=== PATIENT | female | born 1975 ===

== ENCOUNTER 2021-12-07 16:44 | Outpatient (CLI) | payer OTHER | END 2021-12-07 16:50 | disposition home or self-care (01) | LOC: RAD 16:44 | PROVIDERS: ATTEND Orthopaedic Surgery | DX: M25.511 Pain in right shoulder (principal) ==

== ENCOUNTER 2024-08-06 11:00 | Inpatient (IN) | payer OTHER ==
[2024-08-10] MEDS ORDERED: PERCOCET 5-3251 EACH PO (16:13)
[2024-08-10] MEDS ORDERED: AMOX-CLAV 875-1 EACH PO (16:13)
[2024-08-10] MEDS ORDERED: MEDROLPACK PO (16:13)
[2024-08-10] MEDS ORDERED: GABAPENTIN100 M2 PO (16:14)
[2024-08-10] MEDS ORDERED: COLACE100 MG PO (16:14)
[2024-08-10] MEDS ORDERED: NEURONTIN800 MG PO (16:15)
[2024-08-10] MEDS ORDERED: 0.9 % SODIUM CHLORIDE 1,000 ML IV SCH (16:15)
[2024-08-10] MEDS ORDERED: ENALAPRILAT DIHYDRATE 1.25 MG/ML VIAL IV PRN (16:15)
[2024-08-10] MEDS ORDERED: MORPHINE SULFATE 4 MG/ML CARTRIDGE IV PRN (16:15)
[2024-08-10] MEDS ORDERED: PROMETHAZINE HCL 50 MG/ML AMPUL IM PRN (16:15)
[2024-08-10] MEDS ORDERED: IOVERSOL 320 MG/ML - 50 ML VIAL IV SCH (17:00)
[2024-08-10] MEDS ORDERED: DOCUSATE SODIUM 100MG CAP PO SCH (17:00)
[2024-08-10] MEDS ORDERED: FAMOtidine 20 MG TABLET PO SCH (17:00)
[2024-08-10] MEDS ORDERED: CEFAZOLIN SODIUM 1,000 MG in 0.9 % SODIUM CHLORIDE 50 ML IV SCH (17:00)
[2024-08-10] MEDS ORDERED: VANCOMYCIN HCL 1,000 MG VIAL IR ONE (17:00)
[2024-08-10] MEDS ORDERED: CEFAZOLIN SODIUM 1,000 MG VIAL IV ONE (17:00)
[2024-08-10] MEDS ORDERED: VANCOMYCIN HCL 1,000 MG VIAL IV ONE (17:00)
[2024-08-10] MEDS ORDERED: HEMOSTATIC MATRIX WITH THROMBIN KIT TOP ONE (17:00)
[2024-08-10] MEDS ORDERED: METHYLPREDNISOLONE SOD SUCC 125 MG VIAL IV ONE ×2 (17:00)
[2024-08-10] MEDS ORDERED: METHYLPREDNISOLONE SOD SUCC 125 MG VIAL IV SCH (17:00)
[2024-08-10] MEDS ORDERED: METHYLPREDNISOLONE ACETATE 80 MG/ML VIAL IU ONE ×2 (17:00)
[2024-08-10] MEDS ORDERED: ACETAMINOPHEN 500 MG GEL..CAP PO SCH (20:00)
[2024-08-10] MEDS ORDERED: GABAPENTIN 800 MG TABLET PO SCH (21:00)
[2024-08-10] MEDS ORDERED: ZOLPIDEM TARTRATE 10 MG TABLET PO SCH (21:00)
[2024-08-10] MEDS ORDERED: MORPHINE SULFATE 4 MG/ML VIAL IV ONE ×2 (21:00→21:30)
[2024-08-10 22:35] VITALS: BP 135/60; O2SAT 98
[2024-08-10 23:58] VITALS: BP 122/66; O2SAT 97
[2024-08-11] VITALS (9 sets, daily range): BP systolic 101; BP diastolic 62–70; O2SAT 95–100
[2024-08-11] MEDS ORDERED: SODIUM CHLORIDE 0.45 % 1,000 ML IV SCH
[2024-08-11] MEDS ORDERED: OxyCODONE HCL 5 MG TABLET (ROXICODONE) PO PRN (06:01)
[2024-08-11 06:56] LABS: HEMOGLOBIN 9.3 g/dL (12.0-15.00); MEAN CELL VOLUME 84.2 fL (80.00-100.00); MEAN CORPUSCULAR HEMOGLOBIN 27.9 pg (27.00-32.0); MEAN CORPUSCULAR HGB CONC 33.1 g/dl (32.0-36.0); PLATELET COUNT 173 K/uL (150-450); RED BLOOD COUNT 3.33 M/uL (4.00-6.00); RED CELL DISTRIBUTION WIDTH 16.1 % (11.5-14.5)
[2024-08-11 07:40] LABS: CALCIUM 8.2 mg/dL (8.5-10.1); CREATININE SERUM 0.69 mg/dL (0.55-1.02); GFR 89.69
[2024-08-11] MEDS ORDERED: TAMSULOSIN HCL 0.4 MG CAP PO SCH (09:00)
[2024-08-12 01:22] VITALS: BP 96/50; O2SAT 97
[2024-08-12 06:17] VITALS: O2SAT 97
[2024-08-12 08:15] VITALS: BP 108/65; O2SAT 98
[2024-08-12 09:18] VITALS: O2SAT 99
== END 2024-08-12 10:49 | disposition home or self-care (01) | DRG 428 ==
LOC: O/R 08-10 08:40 → SURH 08-10 08:40
PROVIDERS: ADMIT Orthopaedic Surgery Orthopaedic Surgery of the Spine; ATTEND Orthopaedic Surgery Orthopaedic Surgery of the Spine
PROC: 0SG0071 Fusion of Lumbar Vertebral Joint with Autologous Tissue Substitute, Posterior Approach, Posterior Column, Open Approach (ICD-10-PCS; 2024-08-10)
PROC: XRGD0R7 Fusion of Lumbosacral Joint using Custom-Made Anatomically Designed Interbody Fusion Device, Open Approach, New Technology Group 7 (ICD-10-PCS; 2024-08-10)
PROC: 0SG3071 Fusion of Lumbosacral Joint with Autologous Tissue Substitute, Posterior Approach, Posterior Column, Open Approach (ICD-10-PCS; 2024-08-10)
PROC: 0ST20ZZ Resection of Lumbar Vertebral Disc, Open Approach (ICD-10-PCS; 2024-08-10)
PROC: 0ST40ZZ Resection of Lumbosacral Disc, Open Approach (ICD-10-PCS; 2024-08-10)
PROC: 0QB30ZZ Excision of Left Pelvic Bone, Open Approach (ICD-10-PCS; 2024-08-10)
PROC: 07DR0ZZ Extraction of Iliac Bone Marrow, Open Approach (ICD-10-PCS; 2024-08-10)
PROC: 4A12X4Z Monitoring of Cardiac Electrical Activity, External Approach (ICD-10-PCS; 2024-08-10)
PROC: XRGB0R7 Fusion of Lumbar Vertebral Joint using Custom-Made Anatomically Designed Interbody Fusion Device, Open Approach, New Technology Group 7 (ICD-10-PCS; principal; 2024-08-10 16:45)
PROC: 4A12X4Z Monitoring of Cardiac Electrical Activity, External Approach (ICD-10-PCS; 2024-08-11)
DX: M43.16 Spondylolisthesis, lumbar region (principal); M48.062 Spinal stenosis, lumbar region with neurogenic claudication; M48.07 Spinal stenosis, lumbosacral region; M43.17 Spondylolisthesis, lumbosacral region